=== PATIENT | male | born 2005 | race Caucasian/White ===

== ENCOUNTER 2024-07-15 17:33 | Emergency (ER) | payer BC, SELFPAY ==
[2024-07-15 17:35] VITALS: BP 129/89
[2024-07-15 17:47] VITALS: BMI 18.9
--- NOTE | 2024-07-15 18:08 | ED.GENMED ---
History of Present Illness
General
Chief Complaint: Abdominal Pain
Source: patient
Exam Limitations: none
Time Seen by Provider: 07/15/24 18:02
Nursing documentation reviewed up to this point in time: agreed with
History of Present Illness
History of Present Illness:
19 yo healthy male presents from [facility] for RLQ pain that started a month ago, has been 'achy,' past few days has been feeling more pressure and aching in the area. [facility] f/c/n/v/d/c.
Past History
Past History
ED Past Medical History: None
ED Past Surgical History: None
Social History
Tobacco: Vaping
Alcohol: None
Personal: Single
Employment: Student
Review of Systems
Review of Systems
Allergies reviewed?: Yes
All Other Systems: ROS reviewed and negative except as documented in HPI and ROS
Constitutional: Denies fever
ABD/GI: Reports abdominal pain; Denies nausea, vomiting, diarrhea or anorexia
: Denies dysuria, difficulty voiding or urgency
Musculoskeletal: Reports no symptoms
Skin: Reports no symptoms
Neurological: Reports no symptoms
Phy Exam
Physical Exam
Physical Exam:
GENERAL: No acute distress. A&Ox3.
CONSTITUTIONAL: Afebrile.
EYES: clear, conjunctivae normal
ENMT: moist mucus membranes, Pharynx nl
RESPIRATORY: Regular respirations, nonlabored, lungs clear.
CARDIOVASCULAR: Regular rate and rhythm, no murmurs, no rubs.
GI: Soft, mild tenderness RLQ, no guarding, no rebound. Normal BS
MUSCULOSKELETAL: Moves with ease. Well perfused.
SKIN: Warm, dry, pink
PSYCH: Normal mood and affect. Well kept, interactive and appropriate
NEUROLOGIC: Awake, alert and oriented. No focal neurological deficits
Course
Orders/Labs/Results
Orders:
Orders
07/15/24 18:07
US Abdomen - Appendix Only Urgent
Comment:
Reason For Exam: RLQ pain
07/15/24 18:08
Iohexol [Omnipaque] See Protocol PO NOW STA
07/15/24 18:19
Complete Blood Count/With Diff Urgent
Comprehensive Metabolic Panel Urgent
07/15/24 20:15
CT Abd/pel W Iv And Oral Contr Urgent
Comment:
Reason For Exam: RLQ pain
Abnormal Lab Results
07/15/24
18:19
RBC 4.55 L 10^6/uL
(4.70-6.10)
MPV 10.6 H fL
(7.4-10.4)
07/15/24 18:19
07/15/24 18:19
Vital Signs
Initial and Last Documented VS:
Initial Vital Signs
Temp Pulse Resp BP Pulse Ox
98.0 F 56 16 129/89 100
07/15/24 17:35 07/15/24 17:35 07/15/24 17:35 07/15/24 17:35 07/15/24 17:35
Last Documented Vital Signs
Temp Pulse Resp BP Pulse Ox
98.0 F 53 16 126/80 100
07/15/24 17:35 07/15/24 19:47 07/15/24 17:35 07/15/24 19:47 07/15/24 19:47
MDM/Problems Addressed
Differential Diagnosis Includes:
appendicitis, musculoskeletal pain.
MDM/Problems Addressed:
19 yo healthy male presents from [facility] for RLQ pain that started a month ago, has been 'achy,' past few days has been feeling more pressure and aching in the area. [facility] f/c/n/v/d/c.
Afebrile
CBC normal
CMP normal
Appendix ultrasound radiology report reviewed: Nonvisualization of the appendix. Will proceed to CT scan
9:30 PM:
CT abdomen pelvis with p.o. and IV contrast radiology report read: Normal
Pt pain is minimal. Reassured. Stable for discharge
*Critical Care Note
Total Time (30-74mins, 75-104mins- exclusive of procedures): Not Applicable
ED Attending Note
-
Portions of this chart may have been created with voice recognition software.� Occasional wrong word or��sound alike� substitutions may have occurred due to the inherent limitations of voice recognition software.
Discharge Plan
Departure
Patient Disposition: Home (Routine Discharge)
Date of Disposition: 07/15/24
Time of Disposition: 21:30
Patient with high blood pressure during this ER visit?: No
Condition: Good
Discharge Problem:
Abdominal pain
Instructions: Abdominal Pain
Referrals:
UNKNOWN - PT NOT,INTERVIEWE [Family Provider] -
Activity Restrictions/Additional Instructions:
As we discussed, your workup here today is normal, no appendicitis.
Interventions
Interventions:
*Risk Screen - Suicide Last Done: 07/15/24 17:35
*General Assessment Last Done: 07/15/24 17:47
*Neglect/Abuse Screening Last Done: 07/15/24 17:35
ED- Fall Risk Assessment Last Done: 07/15/24 17:47
*ED COVID-19 Vaccine History Last Done: 07/15/24 17:35
*Nursing Disposition Last Done: 07/15/24 22:02
ZM-Zrqtjj-Annqsqktzo Assessment Last Done: 07/15/24 17:47
Discharge Date and Time
Discharge Date/Time: 07/15/24 22:03
Print Language: FAROESE
[2024-07-15] MEDS: OMNIPAQUE 50 ML PO (18:14)
[2024-07-15 18:40] LABS: % Basophils 0.6 % (0-2); % Eosinophils 3.4 % (0-6); % Immature Granulocytes 0.1 % (0-0.5); % Monocytes 7.3 % (1.7-9.3); % Neutrophils 62.6 % (42.2-75.2); Absolute Eosinophils 0.2 10^3/uL (0-0.7); Absolute Lymphocytes 1.8 10^3/uL (1.2-3.4); Absolute Monocytes 0.5 10^3/uL (0.1-0.6); Absolute Neutrophils 4.4 10^3/uL (1.4-6.5); Hematocrit 41.1 % (39.0-52.0); Mean Corp Hgb Conc. 34.1 g/dL (33.0-37.0); Mean Corpuscular Hgb 30.8 pg (27.0-31.0); Mean Corpuscular Volume 90.3 fL (80.0-94.0); Mean Platelet Volume 10.6 fL (7.4-10.4); Nucleated Red Blood Cells % 0 % (-); Platelet Count 239 10^3/uL (130-400); Red Blood Cell Count 4.55 10^6/uL (4.70-6.10); White Blood Cell Count 7.1 10^3/uL (4.8-10.8)
[2024-07-15 18:54] LABS: ALT (SGPT) 15 U/L (0-50); AST (SGOT) 25 U/L (17-59); Albumin 4.7 g/dl (3.5-5.0); Alkaline Phosphatase 74 U/L (38-126); Blood Urea Nitrogen 19 mg/dl (9-20); Carbon Dioxide 26 mmol/L (22-30); Chloride 103 mmol/L (98-107); Estimated Creatinine Clearance > 125 ml/min; Glucose 96 mg/dl (70-99); Potassium 4.1 mmol/L (3.5-5.1); Sodium 141 mmol/L (135-145); Total Bilirubin 0.6 mg/dl (0.2-1.3); Total Protein 6.9 g/dl (6.3-8.2); eGFR > 60.00
[2024-07-15 19:47] VITALS: BP 126/80
--- NOTE | 2024-07-15 19:48 | EDRN ---
Report received, patient went to ultrasound, went over results and plan for CT, vss, pain under control at time time.
== END 2024-07-15 22:03 | disposition home or self-care (01) ==
LOC: EMR 17:33
PROVIDERS: Registered Nurse; EMERGENCY PHYSICIAN Emergency Medicine
DX: R10.31 Right lower quadrant pain (principal); F17.290 Nicotine dependence, other tobacco product, uncomplicated
CPT/HCPCS: 99284; 74177; 76705; 80053; 85025; Q9967